=== PATIENT | female | born 1935 | race Caucasian/White ===

== ENCOUNTER → 2016-06-16 | Outpatient (CLI) | payer MEDICARE ==
[~2016-06-16] MED LIST: ALDACTONE25 MG PO; AMIODARONE HCL100 MG PO; ASPIRIN81 MG PO; BACTROBAN NASAL1 GM TOP; BYSTOLIC5 MG PO; CALCIUM + VITA1 EACH PO; COREG6.25 MG PO; COUMADIN3 MG PO; ELIQUIS2.5 MG PO; FLONASE16 GM NASBOTH; IRON325 M1 PO; LASIX40 MG PO; LIPITOR40 MG PO; MIRALAX17 GM PO; MULTIVITAMINS1 EAC1 PO; NORCO 325-5 MG1 TAB PO; OCUFLOX EYERT; OPTIVE EYEBOTH; PRILOSEC20 MG PO; SYNTHROID100 MCG PO; THERA M PLUS T1 EACH PO; ULTRAM50 MG PO; VIBRAMYCIN100 MG PO; VITAMIN D1000 UNIT PO; ZANTAC300 MG PO; ZOFRAN4 MG PO
== END | disposition short-term general hospital (02) ==
LOC: CLCARD 09:25
DX: I48.0 Paroxysmal atrial fibrillation (principal); I25.10 Atherosclerotic heart disease of native coronary artery without angina pectoris; I50.20 Unspecified systolic (congestive) heart failure; I05.9 Rheumatic mitral valve disease, unspecified; I27.2 Other secondary pulmonary hypertension; E66.9 Obesity, unspecified; G47.30 Sleep apnea, unspecified; K92.2 Gastrointestinal hemorrhage, unspecified; R94.31 Abnormal electrocardiogram [ECG] [EKG]; Z95.2 Presence of prosthetic heart valve; Z79.01 Long term (current) use of anticoagulants; Z95.0 Presence of cardiac pacemaker

== ENCOUNTER → 2016-07-04 | Outpatient (CLI) | payer MEDICARE | END | disposition short-term general hospital (02) | LOC: CLPULM 09:37 | DX: J44.9 Chronic obstructive pulmonary disease, unspecified (principal); R93.8 Abnormal findings on diagnostic imaging of other specified body structures; R59.0 Localized enlarged lymph nodes; R09.82 Postnasal drip; I27.2 Other secondary pulmonary hypertension; D64.9 Anemia, unspecified; E03.9 Hypothyroidism, unspecified; K21.9 Gastro-esophageal reflux disease without esophagitis; K59.09 Other constipation; M19.90 Unspecified osteoarthritis, unspecified site; Z79.899 Other long term (current) drug therapy; Z98.890 Other specified postprocedural states; Z86.79 Personal history of other diseases of the circulatory system ==